=== PATIENT | male | born 1990 | race African-American/Black ===

== ENCOUNTER 2019-05-31 23:18 | Emergency (ER) | payer MEDICAID, OTHER ==
[~2019-05-31] VITALS: Ht 188 cm; Wt 80.0 kg
[2019-06-01] MEDS ORDERED: HALOPERIDOL LACTATE 5MG/ML VIAL IM ONE
[2019-06-01 01:57] VITALS: BP 112/60
== END 2019-06-01 02:00 | disposition home or self-care (01) ==
LOC: ER 23:18
DX: F15.10 Other stimulant abuse, uncomplicated (principal); F17.200 Nicotine dependence, unspecified, uncomplicated; F17.290 Nicotine dependence, other tobacco product, uncomplicated
CPT/HCPCS: 93005; 96372; 99283; 99406; J1630; Z7610